=== PATIENT | female | born 1980 | race Hispanic/Latino ===

== ENCOUNTER 2016-04-29 21:17 | Emergency (ER) | payer MEDICAID ==
[2016-04-29 22:10] VITALS: BP 160/86
[2016-04-29 22:44] LABS: Basophils % (Auto) 0.5 % (0.0-1.8); Eosinophils % (Auto) 0.2 % (0.0-4.3); Hematocrit 42.6 % (30.3-42.9); Mean Corpuscular HGB Conc 33 % (30-34); Mean Corpuscular Hemoglobin 28 pg (28-32); Mean Corpuscular Volume 85 fl (79-97); Platelet Count 256 K/mm3 (140-440); Red Cell Distribution Width 16.1 % (13.2-15.2); White Blood Count 11.3 K/mm3 (4.5-11.0)
[2016-04-29 22:56] LABS: Blood Urea Nitrogen 12 mg/dL (7-17); Calcium 9.6 mg/dL (8.4-10.2); Carbon Dioxide 26 mmol/L (22-30); Glucose 122 mg/dL (65-100)
[2016-04-29 22:57] LABS: Chloride 98.8 mmol/L (98-107); Potassium 4.2 mmol/L (3.6-5.0); Sodium 140 mmol/L (137-145)
[2016-04-29 22:59] LABS: Anion Gap 19 mmol/L
[2016-04-30 05:15] LABS: Bilirubin,Urine NEG (Negative); Blood,Urine NEG (Negative); Ketones,Urine NEG (Negative); Leukocyte Esterase,Urine NEG (Negative); Nitrite,Urine NEG (Negative); Protein,Urine <15 mg/dL mg/dL (Negative); Urobilinogen,Urine < 2.0 mg/dL (<2.0); WBC,Urine < 1.0 /HPF (0.0-6.0)
--- NOTE | 2016-05-04 13:42 | ED Elopement Review ---
ED Pt Elopement review - Results review Lab results: Laboratory Tests 04/29/16 04/29/16 04/29/16 22:36 22:36 Unknown WBC 11.3 H RBC 5.00 Hgb 14.0 Hct 42.6 MCV 85 MCH 28 MCHC 33 RDW 16.1 H Plt Count 256 Lymph % (Auto) 25.5 Petroleum % (Auto) 5.9 Eos % (Auto) 0.2 Baso % (Auto) 0.5 Lymph # 2.9 Petroleum # 0.7 Eos # 0.0 Baso # 0.1 Seg Neutrophils % 67.9 Seg Neutrophils # 7.7 Sodium 140 Potassium 4.2 Chloride 98.8 Carbon Dioxide 26 Anion Gap 19 BUN 12 Creatinine 0.8 Estimated GFR > 60 BUN/Creatinine Ratio 15.00 Glucose 122 H Calcium 9.6 Urine Color Yellow Urine Turbidity Clear Urine pH 6.0 Ur Specific [place] 1.008 Urine Protein <15 mg/dl Urine Glucose (UA) Neg Urine Ketones Neg Urine Blood Neg Urine Nitrite Neg Urine Bilirubin Neg Urine Urobilinogen < 2.0 Ur Leukocyte Esterase Neg Urine WBC (Auto) < 1.0 Urine RBC (Auto) 0.0 U Epithel Cells (Auto) < 1.0 Urine HCG, Qual Negative - Call Back decision Pt Call Back Decision: No action required
== END 2016-04-30 03:05 | disposition left against medical advice (07) ==
LOC: ED 21:17
DX: R11.2 Nausea with vomiting, unspecified (principal); R19.7 Diarrhea, unspecified; F41.9 Anxiety disorder, unspecified; Z88.2 Allergy status to sulfonamides; Z88.5 Allergy status to narcotic agent; Z88.8 Allergy status to other drugs, medicaments and biological substances; Z53.21 Procedure and treatment not carried out due to patient leaving prior to being seen by health care provider
CPT/HCPCS: 36415; 80048; 81001; 81025; 85025